=== PATIENT | male | born 1970 | race Caucasian/White ===

== ENCOUNTER 2018-08-02 06:54 | Emergency (ER) | payer OTHER ==
[2018-08-02] MEDS ORDERED: PENICILLIN VK 500 MG TAB PO ONE (07:21)
--- NOTE | 2018-08-02 07:24 | EDPHY ---
H & P Time Seen by Provider: 08/02/18 07:04 HPI/ROS: CHIEF COMPLAINT: Toothache HISTORY OF PRESENT ILLNESS: 48-year-old male presents with a right right upper toothache which is been present for 2-3 days. Worsening today. Feels that it may be abscessed. Has an appointment with a dentist in 2 days. REVIEW OF SYSTEMS: No fever, no facial swelling, no nausea or vomiting. A comprehensive 10 system review of systems was reviewed and is otherwise negative aside from elements mentioned in the history of present illness and medical decision making. PAST MEDICAL HISTORY: Prior history of similar tooth abscess. SOCIAL HISTORY: Nonsmoker. Does not use marijuana products GENERAL APPEARANCE: Pleasant, complaining toothache. FOCUSED EXAM OF HEENT: No facial swelling appreciated. Pupils equal round reactive to light. No conjunctival injection. Mild erythema with mild gum swelling around the 1st molar, upper right. No tenderness to percussion. No trismus or intraoral lesions. Smoking Status: Never smoked Constitutional: Initial Vital Signs Temperature (C) 36.5 C 08/02/18 06:56 Heart Rate 75 08/02/18 06:56 Respiratory Rate 18 08/02/18 06:56 Blood Pressure 156/97 H 08/02/18 06:56 O2 Sat (%) 96 08/02/18 06:56 O2 Delivery Mode Room Air Allergies/Adverse Reactions: No Known Allergies Allergy (Unverified 08/02/18 06:56) Home Medications: Medication Instructions Recorded Penicillin V Potassium [Pen Vk 500 mg PO Q6H 7 Days tab 08/02/18 500mg (*)] MDM/Departure - MDM Medications Given: Discontinued Medications Penicillin V Potassium (Pen Vk) 500 mg PO EDNOW ONE PRN Reason: Protocol Stop: 08/02/18 07:22 Last Admin: 08/02/18 07:43 Dose: 500 mg ED Course/Re-evaluation: Keflex prescription provided. Please see the discharge instructions Differential Diagnosis: Differential diagnoses for the patient's symptom complex was considered including but not limited to fractured tooth, toothache, tooth abscess, facial abscess, dental caries. - Depart Disposition: Home, Routine, Self-Care Clinical Impression: Tooth ache Condition: Good Instructions: Dental Abscess (ED), Toothache (ED) Additional Instructions: I recommend Ibuprofen for pain and anti-inflammatory effects. Your dose is: Ibuprofen 600 mg every 6-8 hours with food. You may also use Tylenol 650-1000 mg every 4-6 hours for additional pain relief. Please start taking Keflex 500 mg by mouth 4 times a day for the next 7 days. Please follow up as scheduled with her dentist on Saturday. Prescriptions: Penicillin V Potassium [Pen Vk 500mg (*)] 500 mg PO Q6H 7 Days tab Referrals: NONE *PRIMARY CARE P,. [Primary Care Provider] - As per Instructions
[2018-08-02 07:53] VITALS: BP 189/121
== END 2018-08-02 07:53 | disposition home or self-care (01) ==
DX: K08.89 Other specified disorders of teeth and supporting structures (principal)

== ENCOUNTER 2018-08-08 18:07 | Emergency (ER) | payer OTHER ==
[2018-08-08 18:13] VITALS: BP 152/106
--- NOTE | 2018-08-08 18:39 | EDPHY ---
H & P Time Seen by Provider: 08/08/18 18:24 HPI/ROS: Chief complaint. Dental pain HPI. Patient 48-year-old male with right upper toothache. Symptoms been present for about 10 days. He was seen August 02 for same. He told the provider that he had an appointment with dentist this past Saturday. He was treated with penicillin. He has now run out of his penicillin and pain is returning. He tells me he has an appointment with dentist on Saturday. He has a history of cracked teeth. No fever. Temperature sensitive. ROS 10 systems were reviewed and negative with the exception of the elements mentioned in the history of present illness Past Medical/Surgical History: Healthy Social History: Single, nonsmoker, no alcohol Smoking Status: Never smoked Physical Exam: General Appearance: Alert well-developed male mild distress vital signs are stable. He is afebrile Eyes: Pupils equal and round no pallor or injection. ENT, pharynx without injection. Mucous membranes moist. Tenderness to the right upper posterior molar. Slight erythema around the tooth. No evidence for abscess. Respiratory: There are no retractions, lungs are clear to auscultation. Cardiovascular: Regular rate and rhythm. Gastrointestinal: Abdomen is soft and nontender, no masses, bowel sounds normal. Neurological: Awake and alert, sensory and motor exams grossly normal. Skin: Warm and dry, no rashes. Musculoskeletal: Neck is supple nontender. Extremities symmetrical, full range of motion. Psychiatric: Patient is oriented X 3, there is no agitation. Constitutional: Initial Vital Signs Temperature (C) 36.5 C 08/08/18 18:09 Heart Rate 100 08/08/18 18:09 Respiratory Rate 14 08/08/18 18:09 Blood Pressure 152/106 H 08/08/18 18:09 O2 Sat (%) 96 08/08/18 18:09 O2 Delivery Mode Room Air Allergies/Adverse Reactions: No Known Allergies Allergy (Unverified 08/02/18 06:56) Home Medications: Medication Instructions Recorded Penicillin V Potassium [Pen Vk 500 mg PO Q6H 7 Days tab 08/02/18 500mg (*)] Penicillin V Potassium [Pen Vk 500 mg PO Q6H 7 Days tab 08/08/18 500mg (*)] Medical Decision Making ED Course/Re-evaluation: Patient remained stable. He and I discussed treatment plan including importance of following up with the dentist or oral surgeon. He expresses understanding and agreement Differential Diagnosis: I considered abscess, cracked 2, dental caries Departure - Departure Disposition: Home, Routine, Self-Care Clinical Impression: Pain, dental Condition: Good Instructions: Toothache (ED) Additional Instructions: Penicillin 1 pill 4 times daily Ibuprofen 6-800 mg every 6 hr for discomfort, Tylenol 1000 mg every 6 hr for discomfort. May alternate these every 3 hr Return for worsening symptoms over the weekend Keep your follow-up appointment with dentist on Saturday Referrals: NONE *PRIMARY CARE P,. [Primary Care Provider] - As per Instructions Prescriptions: Penicillin V Potassium [Pen Vk 500mg (*)] 500 mg PO Q6H 7 Days tab
== END 2018-08-08 18:45 | disposition home or self-care (01) ==
DX: K08.89 Other specified disorders of teeth and supporting structures (principal)

== ENCOUNTER 2018-09-05 17:57 | Emergency (ER) | payer OTHER | END 2018-09-05 19:57 | disposition home or self-care (01) ==